=== PATIENT | female | born 1995 | race Hispanic/Latino ===

== ENCOUNTER → 2022-06-28 | Day surgery (SDC) | payer OTHER ==
[~2022-06-28] MED LIST: Acetaminophen 500 MG TAB ONE; Acetaminophen 500 MG TAB PO SCH; Iron Sucrose Complex 500 MG in Sodium Chloride 0.9% 250 ML 250 ML IVPB SCH
== END ==
LOC: CSHSDC/OP 09:22
PROVIDERS: ATTEND Student in an Organized Health Care Education/Training Program
DX: O99.019 Anemia complicating pregnancy, unspecified trimester (principal); D64.9 Anemia, unspecified; Z3A.00 Weeks of gestation of pregnancy not specified
CPT/HCPCS: J1756; J7050

== ENCOUNTER 2022-09-03 14:25 | Day surgery (SDC) | payer OTHER ==
[2022-09-03 15:14] VITALS: BMI 26.7
[2022-09-03] MEDS ORDERED: hydrALAZINE 20 MG/ML VIAL SLOW IVP PRN (15:32)
[2022-09-03] MEDS ORDERED: Lactated Ringer's 1,000 ML IV SCH (17:30)
[2022-09-04 23:25] LABS: Group B Streptococcus by PCR DETECTED (NotDetected)
== END 2022-09-03 19:25 | disposition home or self-care (01) ==
LOC: CSHLD/OP 14:25
PROVIDERS: ATTEND Family Medicine
DX: O47.03 False labor before 37 completed weeks of gestation, third trimester (principal); O99.013 Anemia complicating pregnancy, third trimester; D64.9 Anemia, unspecified; O99.891 Other specified diseases and conditions complicating pregnancy; R00.0 Tachycardia, unspecified; R06.02 Shortness of breath; Z3A.34 34 weeks gestation of pregnancy; Z79.899 Other long term (current) drug therapy
CPT/HCPCS: 87653

== ENCOUNTER 2022-09-12 02:29 | Day surgery (SDC) | payer OTHER ==
[2022-09-12 02:58] VITALS: BMI 26.5
[2022-09-12 03:21] LABS: Fetal Membranes Rupture No Membranes Rupture (No Rupture)
[2022-09-12] MEDS ORDERED: hydrALAZINE 20 MG/ML VIAL SLOW IVP PRN (03:47)
== END 2022-09-12 05:35 | disposition home or self-care (01) ==
LOC: CSHLD/OP 02:29
PROVIDERS: ATTEND Obstetrics & Gynecology
DX: O47.03 False labor before 37 completed weeks of gestation, third trimester (principal); Z79.82 Long term (current) use of aspirin; Z79.899 Other long term (current) drug therapy; Z3A.36 36 weeks gestation of pregnancy
CPT/HCPCS: 84112; 99283

== ENCOUNTER 2022-09-12 15:09 | Inpatient (IN) | payer OTHER ==
[2022-09-12] MEDS ORDERED: Ibuprofen 800 MG TAB PO PRN (15:34)
[2022-09-12] MEDS ORDERED: Misoprostol 200 MCG TAB PR PRN (15:34)
[2022-09-12] MEDS ORDERED: Promethazine HCl 25 MG/ML VIAL IM PRN ×2 (15:34→16:30)
[2022-09-12] MEDS ORDERED: hydrALAZINE 20 MG/ML VIAL SLOW IVP PRN (15:34)
[2022-09-12] MEDS ORDERED: Lidocaine 1% (PF) 30 ML VIAL SC PRN (15:34)
[2022-09-12] MEDS ORDERED: Ondansetron PF 4 MG/2 ML Vial IVP PRN ×2 (15:34→16:30)
[2022-09-12 15:43] VITALS: BMI 26.5
[2022-09-12] MEDS ORDERED: NS w/ Oxytocin 30 units 500 ML IV SCH ×2 (15:45→21:00)
[2022-09-12] MEDS ORDERED: Fentanyl 2 mcg/Bup 0.1% Cadd 100 ML ONE (15:51)
[2022-09-12 15:52] LABS: Hemoglobin 10.6 g/dL (12.0-15.5); Mean Corpuscular HGB CONC 33.8 g/dL (32.0-36.0); Mean Corpuscular Hemoglobin 26.9 pg (27.0-33.0); Mean Corpuscular Volume 79.7 fl (81.6-98.3); Mean Platelet Volume 12.1 fl (7.4-10.4); Platelet Count 231 10x3/uL (150-450); RBC Distribution Width 14.5 % (11.5-14.5); Red Blood Cell (RBC) Count 3.94 10x6/uL (3.90-5.03)
[2022-09-12] MEDS ORDERED: Penicillin G Potassium 5 MILL.UNITS in Sodium Chloride 0.9% 100 ML IVPB SCH (16:00)
[2022-09-12 16:30] LABS: HBSAg Index 0.15 S/CO (0-0.99); Hep B Surf Ag Non-Reactive S/CO (NonReactive)
[2022-09-12] MEDS ORDERED: diphenhydrAMINE 50 MG/ML VIAL IVP PRN (16:30)
[2022-09-12] MEDS ORDERED: Acetaminophen 325 MG TAB PO PRN (16:30)
[2022-09-12] MEDS ORDERED: ePHEDrine Sulfate 50 MG/10 ML VIAL SLOW IVP PRN (16:30)
[2022-09-12] MEDS ORDERED: Naloxone HCl 0.4 mg/ml Vial IVP PRN ×2 (16:30)
[2022-09-12] MEDS ORDERED: Moisturizing Cream (Eucerin) 113 GM JAR TOP PRN (16:30)
[2022-09-12] MEDS ORDERED: Lactated Ringer's 500 ML IV PRN (16:30)
[2022-09-12] MEDS ORDERED: Fentanyl 2 mcg/Bupivacaine 0.1% Cassette 100 ML EPIDURAL SCH (16:30)
[2022-09-12] MEDS ORDERED: Communication Order-Pharmacy FS SCH (16:30)
[2022-09-12 16:31] LABS: Syphilis Antibody Nonreactive (Nonreactive); Syphilis Antibody Index 0.03 S/CO (<1.00 Non-Reactive)
[2022-09-12 16:52] LABS: SARS-CoV-2 NAA Rapid Test Not Detected (NotDetected)
[2022-09-12 17:03] LABS: HIV (1/2) Antibody/Antigen Non-Reactive (NonReactive); HIV 1/2 INDEX 0.14 S/CO (<1.00)
[2022-09-12] MEDS: Lactated Ringer's 1,000 ML IV SCH ×2 (18:57→19:50)
[2022-09-12] MEDS: Penicillin G 2.5 MILL.units 2.5 MILL.UNITS in Premix Bag 1 BAG IVPB SCH ×2 (19:50→23:52)
[2022-09-12] MEDS ORDERED: Loperamide HCl 2 MG CAP PO SCH (22:30)
[2022-09-12] MEDS ORDERED: Loperamide HCl 2 MG CAP PO PRN (22:30)
[2022-09-12] MEDS ORDERED: Lactated Ringer's 500 ML IV SCH (22:45)
[2022-09-13] MEDS ORDERED: Methylergonovine 0.2 MG/ML VIAL ONE (03:58)
[2022-09-13] MEDS ORDERED: Bisacodyl 10 MG SUPP PR PRN (04:06)
[2022-09-13] MEDS ORDERED: Ondansetron PF 4 MG/2 ML Vial IVP PRN (04:06)
[2022-09-13] MEDS ORDERED: Lanolin Ointment 7 GM TUBE TOP PRN (04:06)
[2022-09-13] MEDS ORDERED: Milk Of Magnesia 30 ML UDCUP PO PRN (04:06)
[2022-09-13] MEDS ORDERED: Boostrix 0.5 ML (Tdap) VIAL (>/=7 yrs of age) IM ONE (04:06)
[2022-09-13] MEDS ORDERED: hydrALAZINE 20 MG/ML VIAL SLOW IVP PRN (04:06)
[2022-09-13] MEDS ORDERED: Methylergonovine 0.2 MG/ML VIAL IM PRN (04:06)
[2022-09-13] MEDS ORDERED: NS w/ Oxytocin 30 units 500 ML IV SCH (04:15)
[2022-09-13] MEDS ORDERED: Ondansetron PF 4 MG/2 ML Vial ONE (04:21)
[2022-09-13] MEDS ORDERED: Misoprostol 200 MCG TAB ONE (04:21)
[2022-09-13] MEDS: Penicillin G 2.5 MILL.units 2.5 MILL.UNITS in Premix Bag 1 BAG IVPB SCH (04:30)
[2022-09-13] MEDS: Ibuprofen 800 MG TAB PO SCH ×3 (06:33→21:37)
[2022-09-13] MEDS ORDERED: ePHEDrine Sulfate 50 MG/10 ML VIAL ONE (07:00)
[2022-09-13] MEDS ORDERED: Bupivacaine HCl 0.5%/Epinephrine 1:200,000/PF 30 ml Vial ONE (07:00)
[2022-09-13] MEDS: Ferrous Sulfate 325 MG TAB PO SCH ×2 (10:04→16:53)
[2022-09-13] MEDS: Docusate 100 MG CAP PO SCH ×2 (10:04→21:37)
[2022-09-13] MEDS: Prenatal Vitamin 1 TAB PO SCH (10:04)
[2022-09-14] MEDS: Ibuprofen 800 MG TAB PO SCH ×2 (05:13→14:19)
[2022-09-14 05:16] LABS: #Basophils 0.1 10x3/uL (0.0-0.2); #Eosinphils 0.2 10x3/uL (0.0-0.5); #Monocytes 0.9 10x3/uL (0.0-1.1); #Neutrophils 5.3 10x3/uL (1.5-8.4); %Basophils 0.8 % (0.0-2.0); %Eosinophils 2.6 % (0.0-6.0); %Lymphocytes 25.1 % (18.0-47.0); %Monocytes 10.7 % (0.0-10.0); %Neutrophils 60.3 % (40.0-75.0); Hemoglobin 9.9 g/dL (12.0-15.5); Mean Corpuscular HGB CONC 32.4 g/dL (32.0-36.0); Mean Corpuscular Hemoglobin 26.2 pg (27.0-33.0); Mean Platelet Volume 11.7 fl (7.4-10.4); Platelet Count 204 10x3/uL (150-450); RBC Distribution Width 14.7 % (11.5-14.5); Red Blood Cell (RBC) Count 3.78 10x6/uL (3.90-5.03); White Blood Cell (WBC) Count 8.8 10x3/uL (3.5-10.5)
[2022-09-14 07:28] VITALS: BP 90/51; TEMP 98
[2022-09-14] MEDS: Docusate 100 MG CAP PO SCH (08:04)
[2022-09-14] MEDS: Ferrous Sulfate 325 MG TAB PO SCH ×2 (08:04→16:00)
[2022-09-14] MEDS: Prenatal Vitamin 1 TAB PO SCH (08:04)
== END 2022-09-14 17:35 | disposition home or self-care (01) | DRG 807 ==
LOC: CSHLD/OP 15:09 → CSHLD 15:31 → CSHPP 09-13 09:29
PROVIDERS: ADMIT Obstetrics & Gynecology; ATTEND Obstetrics & Gynecology
PROC: 10907ZC Drainage of Amniotic Fluid, Therapeutic from Products of Conception, Via Natural or Artificial Opening (ICD-10-PCS; 2022-09-12)
PROC: 3E033VJ Introduction of Other Hormone into Peripheral Vein, Percutaneous Approach (ICD-10-PCS; 2022-09-12)
PROC: 10E0XZZ Delivery of Products of Conception, External Approach (ICD-10-PCS; principal; 2022-09-13)
PROC: 10H07YZ Insertion of Other Device into Products of Conception, Via Natural or Artificial Opening (ICD-10-PCS; 2022-09-13)
DX: O60.14X0 Preterm labor third trimester with preterm delivery third trimester, not applicable or unspecified (principal); Z37.0 Single live birth; Z3A.36 36 weeks gestation of pregnancy; Z20.822 Contact with and (suspected) exposure to COVID-19; O99.02 Anemia complicating childbirth; D64.9 Anemia, unspecified; D56.3 Thalassemia minor; Z90.49 Acquired absence of other specified parts of digestive tract; O34.211 Maternal care for low transverse scar from previous cesarean delivery; Z79.82 Long term (current) use of aspirin; Z79.899 Other long term (current) drug therapy; O99.824 Streptococcus B carrier state complicating childbirth
CPT/HCPCS: 36415; 51702; 84112; 85025; 85027; 86780; 86850; 86900; 86901; 87340; 87389; 99283; 99285; J2210; J2405; J2540; J2590; J3490; J7120; U0002

== ENCOUNTER 2023-06-28 07:29 | Emergency (ER) | payer OTHER ==
[2023-06-28] MEDS ORDERED: Acetaminophen 325 MG TAB ONE (08:18)
[2023-06-29 13:21] LABS: GC by PCR, Vaginal Swab Not Detected (NotDetected)
== END 2023-06-28 10:32 | disposition home or self-care (01) ==
LOC: CSHERS 07:29
DX: O98.812 Other maternal infectious and parasitic diseases complicating pregnancy, second trimester (principal); B37.31 Acute candidiasis of vulva and vagina; O23.592 Infection of other part of genital tract in pregnancy, second trimester; B96.89 Other specified bacterial agents as the cause of diseases classified elsewhere; Z3A.16 16 weeks gestation of pregnancy
CPT/HCPCS: 87480; 87510; 87591; 87660; 99284